=== PATIENT | female | born 1995 | race Caucasian/White ===

== ENCOUNTER 2022-03-26 18:26 | Emergency (ER) | payer OTHER ==
[~2022-03-26] VITALS: Ht 167.6 cm; Wt 97.5 kg
[~2022-03-26 18:26] MED LIST: FERR325E14 PO
[2022-03-26 18:43] VITALS: BP 143/95
--- NOTE | 2022-03-26 20:24 | NUR ---
PT TAKEN TO BED 11
--- NOTE | 2022-03-26 20:30 | NUR ---
PT AMBULATED TO ED 11, PT C/O DIZZINESS AND FOGINESS AFTER SMOKING A NEW THC VAPE PEN TODAY AT 1500. PT DENIES ANY CP OR SOB AT PRESENT TIME, PT STATES ALL SYMPTOMS HAVE RESOLVED. PLACED ON MONIOTR. NKDA, NO MEDICAL HISTORY.
[2022-03-26 21:35] LABS: BARBITURATE, URINE NEGATIVE ng/ml (NEG <=200); BENZODIAZEPINE, URINE NEGATIVE ng/mL (NEG <=200); CANNABINOID, URINE POSITIVE ng/mL (NEG <=50); COCAINE, URINE NEGATIVE ng/mL (NEG <=300); OPIATE, URINE NEGATIVE ng/mL (NEG <=2000); PHENCYCLIDINE SCREEN,URINE NEGATIVE ng/mL (NEG <=25)
--- NOTE | 2022-03-26 22:00 | NUR ---
PT STATES SHE FEELS FINE, NO DISCOMFORT OR PAIN.
--- NOTE | 2022-03-26 22:19 | NUR ---
Patient discharged with v/s stable. Written and verbal after care instructions given and explained. Patient verbalized understanding. Ambulatory with steady gait. All questions addressed prior to discharge. Advised to follow up with PMD.
[2022-03-26 22:20] VITALS: BP 112/70
== END 2022-03-26 22:18 | disposition home or self-care (01) ==
LOC: MED 18:26
DX: F41.9 Anxiety disorder, unspecified (principal); F12.90 Cannabis use, unspecified, uncomplicated
CPT/HCPCS: 80305; 81002; 81025; 93005; 99284